=== PATIENT | female | born 1980 | race Caucasian/White ===

== ENCOUNTER → 2016-08-08 | Outpatient (CLI) | payer OTHER ==
[2016-04-23 07:00] VITALS: BP 116/73
[~2016-08-08] MED LIST: ACET250T2 PO; ASPI325T4 PO; B12 PO; ESOM20CA PO; LEVO100T PO; OXYC-323 PO; RIZA10TA10 PO; b12
--- NOTE | 2016-08-08 14:30 | RAD ---
Left breast ultrasound, 08/08/2008: History: Breast pain, follow-up left breast nodule An outside ultrasound exam dated 03/29/2016 demonstrated an oval-shaped hypoechoic nodule at the 10:00 location in the left breast. Rescanning of that region today demonstrated the same nodule. It currently measures approximately 9 x 4.5 mm compared to measurements of 10 x 4.5 mm on the previous study. It is therefore essentially stable. It is wider than tall and smooth. This is probably a fibroadenoma. We also scanned the remainder of the left breast due to the patient's generalized breast pain. At the 12:00 location there is a 16 x 8 x 6 mm smooth nodule which is somewhat peanut-shaped. It is wider than it is tall. It is hypoechoic without significant posterior acoustic enhancement or shadowing. This is probably an additional fibroadenoma. At the 2:00 location in the left breast there is a larger hypoechoic nodule measuring 2.1 x 1.8 x 1.4 cm. Its margins are slightly irregular. There is no significant posterior acoustic enhancement or shadowing. While this may also be a fibroadenoma, its shape and margins are of some concern. Biopsy is suggested to exclude a circumscribed malignancy. IMPRESSION: 1. Unchanged 10:00 nodule with probably benign features. 2. Similar small nodule at the 12:00 location. 3. Mildly suspicious nodule at the 2:00 location as described above. Ultrasound-guided biopsy of this nodule is suggested. Depending on those results, sonographic surveillance of the other nodules may be appropriate. Note: The findings were given to the patient at the time of the examination and wrist and the recommendation for biopsy. BI-RADS 4-suspicious finding
== END | disposition home or self-care (01) ==
LOC: US 13:13
PROVIDERS: ATTEND Physician Assistant Medical
DX: N64.4 Mastodynia (principal); D24.2 Benign neoplasm of left breast
CPT/HCPCS: 76641

== ENCOUNTER → 2016-08-27 | Outpatient (CLI) | payer OTHER ==
[~2016-08-27] VITALS: Ht 162.6 cm; Wt 145.1 kg
[~2016-08-27] MED LIST changes: +LEVO112T4 PO
[2016-08-27 13:35] VITALS: BP 137/84
--- NOTE | 2016-08-28 16:58 | PATHOLOGY ---
PATHOLOGY REPORT * * * * * * * * FINAL DIAGNOSIS: Breast tissue, left breast biopsy: - Fibroadenoma. COMMENT: There is no evidence of malignancy. (JPM:csd; d/t: 08/28/2016) REPORT ELECTRONICALLY SIGNED BY: Stiven Ayoub M.D. DATE/TIME: 08/28/2016 16:57 * * * * * * * * GROSS PATHOLOGY: Received in formalin, labeled "Keely-left breast biopsy" are multiple white-tobar to yellow cores of tissue measuring 1.5 x 0.7 x 0.2 cm in aggregate. Total A1 and A2. ([facility]; 08/27/2016) Date of service: 08/27/2016, time surgically removed: 214, time placed in formalin: 219, time of fixation: 9 hours. INITIAL CPT CODE(S): A; 28943 Professional services performed [place] [facility] [place] [address] Technical services performed by [facility] at [address] [place] [address], [facility] [address] [address]. SPECIMEN(S) RECEIVED: A.Left breast mass CLINICAL HISTORY: Left breast mass PATIENT: ASAF ZAAVLA /AGE: 1204/29/1980 (Age: 36) PATIENT #: [id number] ALT CASE #: SPECIMEN COLLECTION DATE: 08/27/2016 SPECIMEN RECEIVED DATE: 08/27/2016 [facility] - [address] [place] [address] - PHONE: [phone] * * * END OF REPORT * * *
== END | disposition home or self-care (01) ==
LOC: US 12:44
PROVIDERS: ATTEND Surgery
DX: N63 Unspecified lump in breast (principal)
CPT/HCPCS: 19081; 76942; C1713; G0206; 77065

== ENCOUNTER → 2017-03-27 | Outpatient (CLI) | payer OTHER ==
[2016-08-27 13:35] VITALS: BP 137/84
[~2017-03-27] MED LIST changes: -ASPI325T4 PO; +ASPI325T8 PO
--- NOTE | 2017-03-27 16:44 | RAD ---
Sonography of the neck History: Fullness in the neck. Trouble swallowing. History of thyroidectomy. Findings: The left lobe of the thyroid gland and isthmus are not visualized consistent with surgical resection. There is soft tissue nodule present within the region of the right lobe of the thyroid gland. The longitudinal and AP and transverse dimensions of this nodule are 19 mm and 17 mm and 18 mm respectively. This solid nodule is homogeneous. This is consistent with residual thyroid tissue. IMPRESSION: History of thyroidectomy. Residual thyroid tissue within the region of the right lobe of the thyroid gland.
== END | disposition home or self-care (01) ==
LOC: US 14:38
PROVIDERS: ATTEND Physician Assistant Medical
DX: R13.10 Dysphagia, unspecified (principal); E89.0 Postprocedural hypothyroidism; R22.1 Localized swelling, mass and lump, neck
CPT/HCPCS: 76536